=== PATIENT | male | born 1985 | race Caucasian/White ===

== ENCOUNTER 2019-12-01 00:39 | Emergency (ER) | payer OTHER ==
[~2019-12-01] VITALS: Ht 188 cm; Wt 81.7 kg
[~2019-12-01 00:39] MED LIST: CLEOCIN HCL150 MG PO; HYDROCODONE-AP1 EAC6 PO; IBUPROFEN 800800 M1 PO; OMEPRAZOLE40 MG PO
[2019-12-01 02:20] VITALS: BP 113/60
--- NOTE | 2019-12-01 10:20 | EKG ---
[place] [address] ELECTROCARDIOGRAM REPORT Name: JASMINA LITTLEJOHN Room: [facility]#: [id number] Admission: 12/01/19 Attend Phys: Discharge: Date of : 89 Report #: [id number] THIS REPORT FOR: //name// 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[place] : 1985 Requested By: Saranya Warner Order Number: [id number] MD: Ever Isaacs Measurements Intervals [place] Rate: 102 P: 74 [place]: 124 QRS: 82 QRSD: 97 T: 56 QT: 342 QTc: 446 Interpretive Statements Sinus tachycardia Probable left atrial enlargement RSR' in V1 or V2, right VCD or RVH Compared to ECG 04/23/2016 12:25:16 Sinus rhythm no longer present Electronically Signed On 12-01-2019 10:19:53 JACKHAMMER OPERATOR by Ever Isaacs [email or web address] <ELECTRONICALLY SIGNED> By: Ever Isaacs MD, [facility] 12/01/19 1019 [id number] [id number] Ever Isaacs MD, [facility] /EPI
== END 2019-12-01 02:31 | disposition home or self-care (01) ==
LOC: M.ERS 00:39
DX: F41.9 Anxiety disorder, unspecified (principal); F17.210 Nicotine dependence, cigarettes, uncomplicated

== ENCOUNTER 2020-04-20 17:04 | Emergency (ER) | payer OTHER ==
[~2020-04-20] VITALS: Ht 188 cm; Wt 77.1 kg
[2020-04-20] MEDS ORDERED: ZPAK PO (17:45)
[2020-04-20 17:56] VITALS: BP 132/70
== END 2020-04-20 17:56 | disposition home or self-care (01) ==
LOC: M.ERS 17:04
DX: J22 Unspecified acute lower respiratory infection (principal); Z88.8 Allergy status to other drugs, medicaments and biological substances

== ENCOUNTER 2020-11-23 22:16 | Emergency (ER) | payer OTHER ==
[~2020-11-23] VITALS: Ht 188 cm; Wt 79.4 kg
[~2020-11-23 22:16] MED LIST changes: +ZPAK PO
[2020-11-23] MEDS ORDERED: CILOXAN5 ML INTRAOCULR (23:08)
[2020-11-23] MEDS ORDERED: HYDROCODON-ACE1 EAC8 PO (23:08)
[2020-11-23 23:16] VITALS: BP 112/70
== END 2020-11-23 23:16 | disposition home or self-care (01) ==
LOC: M.ERS 22:16
DX: T15.02XA Foreign body in cornea, left eye, initial encounter (principal); W22.8XXA Striking against or struck by other objects, initial encounter; Y93.89 Activity, other specified; Y92.89 Other specified places as the place of occurrence of the external cause; Y99.8 Other external cause status

== ENCOUNTER 2020-12-11 19:12 | Emergency (ER) | payer OTHER ==
[~2020-12-11] VITALS: Ht 188 cm; Wt 74.8 kg
[~2020-12-11 19:12] MED LIST changes: +CILOXAN5 ML INTRAOCULR; +HYDROCODON-ACE1 EAC8 PO
[2020-12-11 21:50] VITALS: BP 130/72
== END 2020-12-11 21:50 | disposition home or self-care (01) ==
LOC: M.ERS 19:12
DX: R36.9 Urethral discharge, unspecified (principal); Z88.8 Allergy status to other drugs, medicaments and biological substances